=== PATIENT | female | born 1995 | race American Indian/Alaskan Native ===

== ENCOUNTER 2018-02-01 14:26 | Emergency (ER) | payer OTHER ==
[2018-02-01 14:37] VITALS: BP 106/56
[2018-02-01] MEDS ORDERED: NORCO 5/325 PO ONE (17:00)
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
[2018-02-01 18:33] LABS: HCG Qualitative,Urine Negative (Negative)
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
== END 2018-02-01 19:50 | disposition home or self-care (01) ==
LOC: ED 14:26
DX: S16.1XXA Strain of muscle, fascia and tendon at neck level, initial encounter (principal); S39.012A Strain of muscle, fascia and tendon of lower back, initial encounter; S29.012A Strain of muscle and tendon of back wall of thorax, initial encounter; F17.200 Nicotine dependence, unspecified, uncomplicated; Z88.1 Allergy status to other antibiotic agents; Z88.0 Allergy status to penicillin; V49.49XA Driver injured in collision with other motor vehicles in traffic accident, initial encounter; Y93.89 Activity, other specified; Y92.488 Other paved roadways as the place of occurrence of the external cause; Y99.8 Other external cause status
CPT/HCPCS: 72072; 72100; 72125; 81025; 99284

== ENCOUNTER 2018-11-14 10:44 | Emergency (ER) | payer OTHER ==
[2018-11-14 10:50] VITALS: BP 114/63
[2018-11-14] MEDS ORDERED: NORCO 5/325 PO ONE (11:22)
[2018-11-14] MEDS ORDERED: IBUPROFEN PO ONE (11:23)
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
== END 2018-11-14 12:25 | disposition home or self-care (01) ==
LOC: ED 10:44
DX: S02.5XXA Fracture of tooth (traumatic), initial encounter for closed fracture (principal); F17.200 Nicotine dependence, unspecified, uncomplicated; F12.10 Cannabis abuse, uncomplicated; Z79.1 Long term (current) use of non-steroidal anti-inflammatories (NSAID); Z79.899 Other long term (current) drug therapy; Z88.1 Allergy status to other antibiotic agents; Z88.0 Allergy status to penicillin; X58.XXXA Exposure to other specified factors, initial encounter; Y93.89 Activity, other specified; Y92.89 Other specified places as the place of occurrence of the external cause; Y99.8 Other external cause status
CPT/HCPCS: 99282